=== PATIENT | male | born 1990 | race Caucasian/White ===

== ENCOUNTER 2016-09-25 15:53 | Emergency (ER) | payer MEDICAID ==
[~2016-09-25] VITALS: Ht 172.7 cm; Wt 75.0 kg
[2016-09-25 15:57] VITALS: BP 161/86; PULSE 112; TEMP 98.5
[2016-09-25] MEDS ORDERED: LYRICA200 MG PO ×2 (16:18→16:20)
[2016-09-25] MEDS ORDERED: PERCOCET 325 MG1 TAB PO (16:19)
[2016-09-25] MEDS ORDERED: EFFEXOR-XR150 MG PO (16:19)
[2016-09-25] MEDS ORDERED: ULTRAM 50MG TAB50 MG PO (16:19)
[2016-09-25] MEDS ORDERED: CATAPRES 0.1MG0.1 MG PO (16:20)
[2016-09-25] MEDS ORDERED: AMOXICILLIN 50500 MG PO (16:25)
== END 2016-09-25 16:42 | disposition home or self-care (01) ==
LOC: COL.ER 15:53
DX: F11.23 Opioid dependence with withdrawal (principal); K52.1 Toxic gastroenteritis and colitis; T40.2X5A Adverse effect of other opioids, initial encounter; H66.91 Otitis media, unspecified, right ear; G83.21 Monoplegia of upper limb affecting right dominant side; G54.0 Brachial plexus disorders; V29.9XXS Motorcycle rider (driver) (passenger) injured in unspecified traffic accident, sequela

== ENCOUNTER 2016-11-27 22:24 | Observation (INO) | payer MEDICAID ==
[~2016-11-27] VITALS: Ht 182.9 cm; Wt 66.1 kg
[~2016-11-27 22:24] MED LIST: AMOXICILLIN 50500 MG PO; CATAPRES 0.1MG0.1 MG PO; EFFEXOR-XR150 MG PO; LYRICA200 MG PO; PERCOCET 325 MG1 TAB PO; ULTRAM 50MG TAB50 MG PO
[2016-11-27 22:48] LABS: BASO # 0.1 (0.0-0.2); BASO % 1.1 % (0.0-2.0); EOS # 0.2 (0.0-0.7); GRAN # 4.4 (1.4-6.5); GRAN % 59.1 % (42.2-75.2); HEMATOCRIT 47.7 % (42.0-52.0); HEMOGLOBIN 15.7 g/dl (13.5-18.0); LYMPH # 2.5 (1.2-3.4); LYMPH % 33.3 % (20.0-51.0); MEAN CELL VOLUME 89 fl (80.0-100.0); MEAN CORPUSCULAR HEMOGLOBIN 29 pg (27.0-31.0); MEAN CORPUSCULAR HGB CONC 33 g/dl (33.0-37.0); MEAN PLATELET VOLUME 10.7 fl (7.4-10.4); MONO # 0.3 (0.1-0.6); MONO % 4.2 % (1.7-9.3); PLATELET COUNT 223 K/mm3 (130-400); RED BLOOD COUNT 5.39 M/mm3 (4.20-5.60); REDCELL DISTRIBUTION WIDTH-CV 13.5 % (11.5-14.5); WHITE BLOOD COUNT 7.4 K/mm3 (4.8-10.8)
[2016-11-27 23:08] LABS: PH 7 (5-8); SQUAMOUS EPITHELIAL None Seen /hpf; URINE APPEARANCE Hazy; URINE BACTERIA None Seen /hpf; URINE BILIRUBIN Negative (NEGATIVE); URINE BLOOD Negative (NEGATIVE); URINE COLOR Straw; URINE GLUCOSE Negative (NEGATIVE); URINE KETONE Negative (NEGATIVE); URINE RBC 0-2 /hpf; URINE UROBILINOGEN Negative (NEGATIVE); URINE WBC None Seen /hpf
[2016-11-27 23:32] LABS: AMPHETAMINE URINE NEGATIVE; BARBITURATES URINE NEGATIVE; BENZODIAZEPINES URINE NEGATIVE; BUPRENORPHINE URINE NEGATIVE; METHADONE URINE NEGATIVE; OPIATES URINE NEGATIVE; OXYCODONE URINE NEGATIVE; PHENCYCLIDINE URINE NEGATIVE; PROPOXYPHENE URINE NEGATIVE; THC CANNABINOIDS URINE NEGATIVE
[2016-11-28] VITALS (1171 sets, daily range): BP systolic 102–135; BP diastolic 65–89; PULSE 69–101; TEMP 97.4–99.1; O2SAT 94–100
[2016-11-28 00:17] LABS: ACETAMINOPHEN < 10 ug/mL (10-30); ADJUSTED CALCIUM 8.6 mg/dL (8.4-10.2); ALANINE AMINOTRANSFERASE 29 U/L (21-72); ALKALINE PHOSPHATASE 84 U/L (50-136); ANION GAP 17 mmol/L (7-16); BILIRUBIN,TOTAL 0.4 mg/dL (0.0-1.0); BLOOD UREA NITROGEN 7 mg/dL (9-20); CALCIUM 8.6 mg/dL (8.4-10.2); CARBON DIOXIDE 22 mmol/L (22-30); CHLORIDE 114 mmol/L (98-107); CREATININE, serum 0.74 mg/dL (0.66-1.25); GLUCOSE 106 mg/dL (74-106); POTASSIUM 3.2 mmol/L (3.4-5.0); SALICYLATE < 1.0 mg/dL; SODIUM 152 mmol/L (137-145); TOTAL PROTEIN 6.8 gm/dL (6.4-8.2)
[2016-11-28 06:00] LABS: CALCIUM 8.5 mg/dL (8.4-10.2); CREATININE, serum 0.79 mg/dL (0.66-1.25); POTASSIUM 3.7 mmol/L (3.4-5.0)
[2016-11-28 13:28] LABS: PROTHROMBIN TIME 11.5 SECONDS (9.7-12.8)
[2016-11-29] VITALS (420 sets, daily range): BP systolic 116–135; BP diastolic 90–94; PULSE 64–104; TEMP 98–98.7; O2SAT 56–100
[2016-11-29 06:15] LABS: BASO # 0.1 (0.0-0.2); BASO % 1.4 % (0.0-2.0); EOS # 0.2 (0.0-0.7); EOS % 2.6 % (0-4.0); GRAN # 3.7 (1.4-6.5); GRAN % 49.6 % (42.2-75.2); HEMATOCRIT 42.6 % (42.0-52.0); LYMPH # 2.9 (1.2-3.4); LYMPH % 39.4 % (20.0-51.0); MEAN CELL VOLUME 90 fl (80.0-100.0); MEAN CORPUSCULAR HEMOGLOBIN 29 pg (27.0-31.0); MEAN CORPUSCULAR HGB CONC 32 g/dl (33.0-37.0); MEAN PLATELET VOLUME 10.8 fl (7.4-10.4); MONO # 0.5 (0.1-0.6); MONO % 6.9 % (1.7-9.3); PLATELET COUNT 211 K/mm3 (130-400); RED BLOOD COUNT 4.74 M/mm3 (4.20-5.60); REDCELL DISTRIBUTION WIDTH-CV 13.3 % (11.5-14.5); WHITE BLOOD COUNT 7.4 K/mm3 (4.8-10.8)
[2016-11-29 06:18] LABS: ANION GAP 8 mmol/L (7-16); BLOOD UREA NITROGEN 11 mg/dL (9-20); CALCIUM 8.6 mg/dL (8.4-10.2); CARBON DIOXIDE 26 mmol/L (22-30); CHLORIDE 105 mmol/L (98-107); CREATININE, serum 0.84 mg/dL (0.66-1.25); GLUCOSE 78 mg/dL (74-106); POTASSIUM 3.2 mmol/L (3.4-5.0); SODIUM 139 mmol/L (137-145)
[2016-11-29 06:30] LABS: HEMOGLOBIN 13.6 g/dl (13.5-18.0)
[2016-11-30] VITALS (51 sets, daily range): BP systolic 118–141; BP diastolic 69–90; PULSE 61–105; TEMP 97.4–98.2; O2SAT 81–99
[2016-12-01] VITALS: BP 120/75; BP 74/49; PULSE 68; PULSE 95; TEMP 97.5; TEMP 98.2
[2016-12-01 04:00] VITALS: BP 108/72; PULSE 82; TEMP 97.6
[2016-12-01 08:00] VITALS: BP 116/78; PULSE 88; TEMP 98.1
[2016-12-01 12:32] VITALS: BP 106/58; PULSE 67; TEMP 98.1
[2016-12-01] MEDS ORDERED: CYMBALTA 20MG20 MG (17:17)
[2016-12-01] MEDS ORDERED: LYRICA 25MG CAP25 MG (17:17)
[2016-12-01] MEDS ORDERED: ABILIFY2 MG PO (17:17)
[2016-12-01] MEDS ORDERED: ULTRAM 50MG TAB50 MG PO (17:18)
== END 2016-12-01 15:06 ==
LOC: COL.ER 22:24 → ICU 11-28 00:27
PROVIDERS: Emergency Medicine; Internal Medicine; Nurse Practitioner Family; Psychiatry & Neurology Psychiatry
DX: T43.622A Poisoning by amphetamines, intentional self-harm, initial encounter (principal); F10.129 Alcohol abuse with intoxication, unspecified; Y90.8 Blood alcohol level of 240 mg/100 ml or more; R45.851 Suicidal ideations; E87.6 Hypokalemia; E87.0 Hyperosmolality and hypernatremia
CPT/HCPCS: 90791-AI; 99223-AI; 99232-AI; 99238; G0378; J1650; J2060; J3411; J3480; J7030

== ENCOUNTER 2016-12-01 16:33 | Observation (INO) | payer MEDICAID ==
[~2016-12-01] VITALS: Ht 172.7 cm; Wt 62.5 kg
[2016-12-01 16:54] VITALS: BP 118/77; PULSE 93; TEMP 97.8
[2016-12-01 17:02] VITALS: BP 118/77; PULSE 93; TEMP 97.8
[2016-12-01] MEDS ORDERED: LYRICA 25MG CAP25 MG (17:17)
[2016-12-01] MEDS ORDERED: ABILIFY2 MG PO (17:17)
[2016-12-01] MEDS ORDERED: CYMBALTA 20MG20 MG (17:17)
[2016-12-01] MEDS ORDERED: ULTRAM 50MG TAB50 MG PO (17:18)
[2016-12-01 20:50] VITALS: BP 130/81; PULSE 120; TEMP 98.6
[2016-12-01 21:22] VITALS: O2SAT 96
[2016-12-01 21:23] VITALS: O2SAT 96
[2016-12-01 23:59] VITALS: O2SAT 98
[2016-12-02] VITALS (9 sets, daily range): BP systolic 138–142; BP diastolic 86–103; PULSE 110–115; TEMP 98; O2SAT 72–98
[2016-12-03 08:18] VITALS: BP 136/85; PULSE 89; TEMP 98.7
[2016-12-03 20:00] VITALS: BP 126/71; PULSE 95; TEMP 98.4
[2016-12-03 21:38] VITALS: O2SAT 95
[2016-12-04 06:11] LABS: ADJUSTED CALCIUM 9.2 mg/dL (8.4-10.2); ALBUMIN 4.3 gm/dL (3.5-5.0); BILIRUBIN,TOTAL 0.5 mg/dL (0.0-1.0); CALCIUM 9.4 mg/dL (8.4-10.2); CREATININE, serum 0.8 mg/dL (0.66-1.25); TOTAL PROTEIN 7.3 gm/dL (6.4-8.2)
[2016-12-04 08:00] VITALS: BP 129/76; PULSE 87; TEMP 97.7
== END 2016-12-04 16:00 ==
LOC: ICU 16:33
PROVIDERS: Psychiatry & Neurology Psychiatry
DX: T40.4X2A Poisoning by other synthetic narcotics, intentional self-harm, initial encounter (principal); F19.10 Other psychoactive substance abuse, uncomplicated; F10.929 Alcohol use, unspecified with intoxication, unspecified; Y90.7 Blood alcohol level of 200-239 mg/100 ml
CPT/HCPCS: G0378; G0379; J1650; J2060

== ENCOUNTER 2017-01-27 09:54 | Emergency (ER) | payer MEDICAID ==
[~2017-01-27] VITALS: Ht 172.7 cm; Wt 68.2 kg
[~2017-01-27 09:54] MED LIST changes: +ABILIFY2 MG PO; +CYMBALTA 20MG20 MG; +LYRICA 25MG CAP25 MG
[2017-01-27 10:01] VITALS: TEMP 98.1
[2017-01-27] MEDS ORDERED: PEN-VEE K500 MG PO (10:28)
[2017-01-27] MEDS ORDERED: ULTRAM 50MG TAB50 MG PO (10:28)
[2017-01-27 11:01] VITALS: BP 141/91; PULSE 100
== END 2017-01-27 11:02 | disposition home or self-care (01) ==
LOC: COL.ER 09:54
DX: K08.89 Other specified disorders of teeth and supporting structures (principal); R11.0 Nausea; F17.210 Nicotine dependence, cigarettes, uncomplicated

== ENCOUNTER 2017-10-13 05:52 | Emergency (ER) | payer MEDICAID ==
[~2017-10-13] VITALS: Ht 172.7 cm; Wt 66.4 kg
[~2017-10-13 05:52] MED LIST changes: +PEN-VEE K500 MG PO
[2017-10-13] MEDS ORDERED: ZYPREXA15 MG PO ×2 (06:01→10:52)
[2017-10-13 06:25] LABS: BASO % 0.5 % (0.0-2.0); EOS % 0.4 % (0-4.0); GRAN % 52.7 % (42.2-75.2); HEMATOCRIT 43.5 % (42.0-52.0); HEMOGLOBIN 14.7 g/dl (13.5-18.0); LYMPH # 2.5 (1.2-3.4); LYMPH % 33.5 % (20.0-51.0); MEAN CELL VOLUME 83 fl (80.0-100.0); MEAN CORPUSCULAR HEMOGLOBIN 28 pg (27.0-31.0); MEAN CORPUSCULAR HGB CONC 34 g/dl (33.0-37.0); MEAN PLATELET VOLUME 12.6 fl (7.4-10.4); MONO % 12.8 % (1.7-9.3); PLATELET COUNT 123 K/mm3 (130-400); RED BLOOD COUNT 5.26 M/mm3 (4.20-5.60); REDCELL DISTRIBUTION WIDTH-CV 13.2 % (11.5-14.5)
[2017-10-13 06:42] LABS: ALANINE AMINOTRANSFERASE 60 U/L (21-72); ALBUMIN 4.5 gm/dL (3.5-5.0); ALKALINE PHOSPHATASE 69 U/L (50-136); ANION GAP 10 mmol/L (7-16); AST,SGOT 51 U/L (15-37); BILIRUBIN,TOTAL 0.4 mg/dL (0.0-1.0); BLOOD UREA NITROGEN 12 mg/dL (9-20); CALCIUM 9.4 mg/dL (8.4-10.2); CARBON DIOXIDE 25 mmol/L (22-30); CHLORIDE 105 mmol/L (98-107); CREATININE, serum 0.83 mg/dL (0.66-1.25); GLUCOSE 119 mg/dL (74-106); POTASSIUM 3.6 mmol/L (3.4-5.0); SODIUM 141 mmol/L (137-145); TOTAL PROTEIN 7.6 gm/dL (6.4-8.2)
[2017-10-13 06:44] LABS: ACETAMINOPHEN < 10 ug/mL (10-30); ALCOHOL(ethanol),MEDICAL < 10 mg/dL; SALICYLATE < 1.0 mg/dL
[2017-10-13 07:17] LABS: COLLECTION METHOD CLEAN CATCH
[2017-10-13 07:27] LABS: PH 7 (5-8); SQUAMOUS EPITHELIAL None Seen /hpf; URINE APPEARANCE Clear; URINE BACTERIA None Seen /hpf; URINE BILIRUBIN Negative (NEGATIVE); URINE BLOOD Negative (NEGATIVE); URINE COLOR Straw; URINE GLUCOSE Negative (NEGATIVE); URINE KETONE Negative (NEGATIVE); URINE LEUKOCYTE ESTERASE Negative (NEGATIVE); URINE NITRATE Negative (NEGATIVE); URINE PROTEIN(semi-quant) Negative (NEGATIVE); URINE RBC None Seen /hpf; URINE UROBILINOGEN Negative (NEGATIVE)
[2017-10-13 07:36] LABS: TRICYCLIC ANTIDEPRESS URINE NEGATIVE
[2017-10-13 10:44] VITALS: BP 127/93; PULSE 88
== END 2017-10-13 10:47 ==
LOC: COL.ER 05:52
PROVIDERS: Emergency Medicine
DX: R45.851 Suicidal ideations (principal); S51.811A Laceration without foreign body of right forearm, initial encounter; F13.10 Sedative, hypnotic or anxiolytic abuse, uncomplicated; F20.9 Schizophrenia, unspecified; X78.8XXA Intentional self-harm by other sharp object, initial encounter
CPT/HCPCS: J3010

== ENCOUNTER 2018-03-19 13:57 | Emergency (ER) | payer MEDICARE, MEDICAID ==
[~2018-03-19] VITALS: Ht 172.7 cm; Wt 68.2 kg
[~2018-03-19 13:57] MED LIST changes: +LYRICA 150MG C150 MG PO; +ZYPREXA15 MG PO
[2018-03-19 14:00] VITALS: BP 123/82; TEMP 98.5
[2018-03-19] MEDS ORDERED: KLONOPIN 0.5MG0.5 MG PO (14:03)
[2018-03-19] MEDS ORDERED: AMOXICILLIN 50500 MG PO (16:18)
[2018-03-19 17:13] VITALS: PULSE 102
== END 2018-03-19 17:12 | disposition home or self-care (01) ==
LOC: COL.ER 13:57
DX: H66.91 Otitis media, unspecified, right ear (principal); R51 Headache; F31.9 Bipolar disorder, unspecified; F20.9 Schizophrenia, unspecified; F17.210 Nicotine dependence, cigarettes, uncomplicated
CPT/HCPCS: J1200; J1885; J2550

== ENCOUNTER 2018-03-29 16:16 | Emergency (ER) | payer MEDICARE, MEDICAID ==
[~2018-03-29] VITALS: Ht 172.7 cm; Wt 72.7 kg
[~2018-03-29 16:16] MED LIST changes: +KLONOPIN 0.5MG0.5 MG PO
[2018-03-29 16:22] VITALS: TEMP 98.6
[2018-03-29 17:30] LABS: COLLECTION METHOD CLEAN CATCH
[2018-03-29 17:31] LABS: BASO # 0.1 (0.0-0.2); BASO % 0.9 % (0.0-2.0); EOS % 0.5 % (0-4.0); GRAN # 3.5 (1.4-6.5); GRAN % 54.5 % (42.2-75.2); HEMATOCRIT 47.2 % (42.0-52.0); HEMOGLOBIN 15.6 g/dl (13.5-18.0); LYMPH # 1.9 (1.2-3.4); LYMPH % 30.3 % (20.0-51.0); MEAN CELL VOLUME 87 fl (80.0-100.0); MEAN CORPUSCULAR HEMOGLOBIN 29 pg (27.0-31.0); MEAN CORPUSCULAR HGB CONC 33 g/dl (33.0-37.0); MONO # 0.9 (0.1-0.6); MONO % 13.6 % (1.7-9.3); PLATELET COUNT 234 K/mm3 (130-400); RED BLOOD COUNT 5.43 M/mm3 (4.20-5.60); REDCELL DISTRIBUTION WIDTH-CV 14.8 % (11.5-14.5)
[2018-03-29 17:37] LABS: ALBUMIN 4.5 gm/dL (3.5-5.0); BILIRUBIN,TOTAL 0.7 mg/dL (0.0-1.0); CALCIUM 9.7 mg/dL (8.4-10.2); CREATININE, serum 0.89 mg/dL (0.66-1.25); POTASSIUM 3.4 mmol/L (3.4-5.0); TOTAL PROTEIN 8.1 gm/dL (6.4-8.2)
[2018-03-29 17:40] LABS: MUCOUS Present /lpf; PH 7 (5-8); SQUAMOUS EPITHELIAL 0-2 /hpf; URINE APPEARANCE Clear; URINE BACTERIA None Seen /hpf; URINE BILIRUBIN Negative (NEGATIVE); URINE BLOOD Negative (NEGATIVE); URINE COLOR Yellow; URINE GLUCOSE Negative (NEGATIVE); URINE KETONE Negative (NEGATIVE); URINE LEUKOCYTE ESTERASE Negative (NEGATIVE); URINE NITRATE Negative (NEGATIVE); URINE PROTEIN(semi-quant) Negative (NEGATIVE); URINE RBC 0-2 /hpf; URINE WBC 0-2 /hpf
[2018-03-29 17:54] LABS: TRICYCLIC ANTIDEPRESS URINE NEGATIVE
[2018-03-30 03:20] VITALS: BP 135/86; PULSE 96
== END 2018-03-30 03:20 ==
LOC: COL.ER 16:16
PROVIDERS: Family Medicine
DX: F10.239 Alcohol dependence with withdrawal, unspecified (principal); Y90.6 Blood alcohol level of 120-199 mg/100 ml
CPT/HCPCS: J2060; J7030

== ENCOUNTER 2018-04-30 12:21 | Emergency (ER) | payer MEDICARE, MEDICAID ==
[~2018-04-30] VITALS: Ht 172.7 cm; Wt 74.1 kg
[2018-04-30 12:28] VITALS: TEMP 97.9
[2018-04-30 13:04] LABS: BASO % 0.6 % (0.0-2.0); EOS # 0.1 (0.0-0.7); GRAN # 3.5 (1.4-6.5); GRAN % 52.7 % (42.2-75.2); HEMATOCRIT 45.7 % (42.0-52.0); HEMOGLOBIN 15.2 g/dl (13.5-18.0); LYMPH # 2.7 (1.2-3.4); LYMPH % 39.5 % (20.0-51.0); MEAN CELL VOLUME 88 fl (80.0-100.0); MEAN CORPUSCULAR HEMOGLOBIN 29 pg (27.0-31.0); MEAN CORPUSCULAR HGB CONC 33 g/dl (33.0-37.0); MONO # 0.4 (0.1-0.6); MONO % 6.1 % (1.7-9.3); PLATELET COUNT 132 K/mm3 (130-400); REDCELL DISTRIBUTION WIDTH-CV 14.6 % (11.5-14.5)
[2018-04-30 13:16] LABS: ALANINE AMINOTRANSFERASE 26 U/L (21-72); ALBUMIN 3.9 gm/dL (3.5-5.0); ALCOHOL(ethanol),MEDICAL 265 mg/dL; ALKALINE PHOSPHATASE 56 U/L (50-136); ANION GAP 14 mmol/L (7-16); AST,SGOT 26 U/L (15-37); BILIRUBIN,TOTAL 0.2 mg/dL (0.0-1.0); BLOOD UREA NITROGEN 15 mg/dL (9-20); CALCIUM 8.3 mg/dL (8.4-10.2); CARBON DIOXIDE 23 mmol/L (22-30); CHLORIDE 111 mmol/L (98-107); GLUCOSE 86 mg/dL (74-106); LIPASE 174 U/L (23-300); POTASSIUM 4.2 mmol/L (3.4-5.0); SODIUM 148 mmol/L (137-145); TOTAL PROTEIN 6.8 gm/dL (6.4-8.2)
[2018-04-30 13:21] LABS: C-REACTIVE PROTEIN < 0.5 mg/dL (0.0-0.9)
[2018-04-30 15:09] VITALS: BP 157/75; PULSE 129
== END 2018-04-30 15:15 | disposition home or self-care (01) ==
LOC: COL.ER 12:21
PROVIDERS: Family Medicine
DX: F10.229 Alcohol dependence with intoxication, unspecified (principal); Y90.8 Blood alcohol level of 240 mg/100 ml or more; Z87.891 Personal history of nicotine dependence
CPT/HCPCS: J2060; J3411; J7030